=== PATIENT | male | born 1995 | race Caucasian/White ===

== ENCOUNTER 2017-06-14 20:41 | Emergency (ER) | payer OTHER ==
--- NOTE | 2017-06-14 22:01 | RAD ---
Indication: Persistent RIGHT knee pain after rugby injury yesterday. Comparison: None. Technique: RIGHT knee: AP, tunnel, crosstable lateral, sunrise views. Report: Negative for joint effusion, malalignment, or fracture. Mild anterior and lateral soft tissue swelling. IMPRESSION: Mild anterior and lateral soft tissue swelling without additional radiographic finding.
--- NOTE | 2017-06-14 22:29 | ED ---
Lower Extremity - HPI Summary HPI Summary: 21M presents with right knee pain since yesterday. He has pain over anterior and lateral aspect of ankle. He was tackled during rugby and his knee was turned he believed turned inward. He has been able to ambulate with pain. He denies any numbness or tingling. no previous injury to the area. took ibuprofen for pain. He feels that the joint is unstable and that is laxity to it. denies any popping or locking but feels that knee is getting caught when moves it. - History of Current Complaint Chief Complaint: EDExtremityLower Stated Complaint: RT KNEE PAIN Time Seen by Provider: 06/14/17 21:05 Pain Intensity: 3 - Allergies/Home Medications Allergies/Adverse Reactions: Allergies Allergy/AdvReac Type Severity Reaction Status Date / Time No Known Allergies Allergy Verified 06/14/17 20:49 PMH/Surg Hx/FS Hx/Imm Hx Endocrine/Hematology History: Denies: Hx Anticoagulant Therapy Cardiovascular History: Denies: Hx Hypertension Infectious Disease History: No Infectious Disease History: Denies: Traveled Outside the [place] in Last 30 Days - Family History Known Family History: Negative: Renal Disease - Social History Alcohol Use: Weekly Substance Use Type: Reports: None Smoking Status (MU): Never Smoked Tobacco Review of Systems Negative: Fever Negative: Chest Pain Negative: Shortness Of Breath Positive: Myalgia - right knee pain All Other Systems Reviewed And Are Negative: Yes Physical Exam Triage Information Reviewed: Yes Vital Signs On Initial Exam: Initial Vitals Temp Pulse Resp BP Pulse Ox 97.8 F 83 18 138/88 100 06/14/17 20:45 06/14/17 20:45 06/14/17 20:45 06/14/17 20:45 06/14/17 20:45 Vital Signs Reviewed: Yes Appearance: Positive: Well-Appearing Skin: Positive: Warm, Dry Head/Face: Positive: Normal Head/Face Inspection Eyes: Positive: Normal, EOMI, JUANITA, Conjunctiva Clear Respiratory/Lung Sounds: Positive: Clear to Auscultation, Breath Sounds Present Cardiovascular: Positive: Normal, RRR Musculoskeletal: Positive: Strength/ROM Intact - right knee, Edema Right - right knee, Other - good pulses, capillary refill<2 secs, possible pos anterior drawer test, sensation grossly intact Neurological: Positive: Normal Psychiatric: Positive: Normal Diagnostics - Vital Signs Vital Signs Temp Pulse Resp BP Pulse Ox 06/14/17 20:45 97.8 F 83 18 138/88 100 - Laboratory Lab Statement: Any lab studies that have been ordered have been reviewed, and results considered in the medical decision making process. - Radiology knee Xray Interpretation: No Acute Changes - IMPRESSION: Mild anterior and lateral soft tissue swelling without additional radiographic finding. Radiology Interpretation Completed By: Radiologist Lower Extremity Course/Dx - Course Course Of Treatment: 21M presents with right knee pain since yesterday. He has pain over anterior and lateral aspect of ankle. He was tackled during rugby and his knee was turned he believed turned inward. He has been able to ambulate with pain. He denies any numbness or tingling. no previous injury to the area. took ibuprofen for pain. He feels that the joint is unstable and that is laxity to it. denies any popping or locking but feels that knee is getting caught when moves it. on exam has edema to right knee, neurovascular intact. xray knee shows swelling. patient declined knee immbolizer. will follow up with ortho. patient understand and agrees with plan. - Diagnoses Differential Diagnosis/HQI/PQRI: Positive: Fracture (Closed), Sprain, Strain Provider Diagnoses: Right knee pain Discharge - Discharge Plan Condition: Good Disposition: HOME Patient Education Materials: Knee Pain (ED) Referrals: Non Staff,Doctor [Primary Care Provider] - Shreya Salinas MD [Medical Doctor] - Additional Instructions: Take Tylenol or ibuprofen every 6 hours as needed for pain Apply ice, rest, elevate Follow up with ortho Return to ED if develop any new or worsening symptoms
[2017-06-14 22:56] VITALS: BP 127/84
== END 2017-06-14 22:56 | disposition home or self-care (01) ==
LOC: ED 20:41
DX: M25.561 Pain in right knee (principal)
CPT/HCPCS: 99282